=== PATIENT | male | born 1995 | race Hispanic/Latino ===

== ENCOUNTER 2017-04-11 07:45 | Emergency (ER) | payer SELFPAY ==
--- NOTE | 2017-04-11 08:31 | RAD ---
EXAM DESCRIPTION: Chest,2 Views CLINICAL HISTORY: 21 years Male, dyspnea, pain with deep breathing IMPRESSION: Infiltrates within the mid right lung. Pneumonia cannot be excluded. The left lung is clear. Mediastinum is unremarkable. Electronically signed by: Palomo Henley MD 04/11/2017 8:31 AM CDT
--- NOTE | 2017-04-11 08:35 | ED.PDOC ---
History of Present Illness - General Chief Complaint: Abdominal Pain Stated Complaint: n/v/d Time Seen by Provider: 04/11/17 08:11 Source: patient Exam Limitations: no limitations - History of Present Illness Initial Comments: Patient presents with two days of increasing abdominal pain. Pain is bilateral lower quadrants. Radiates to the back on the right side. No exacerbating nor alleviating factors. Constant but intermittent in intensity. Not worsened by food but he has a decreased appetite. Last meal was last night. He had one loose non-bloody stool this morning. "Aching" in nature. Rather sudden onset. No particular context. No changes in urine color or frequency. No dysuria. Has had low back pain for three weeks. The low back pain is right sided with radiation to the right flank. It is constant and aching. Better with rest and worse with movement. No recent traumas. He does do physical activity at work but he says there has been nothing new. The patient also says he has had intermittent dyspne. It is not associated with any other symptom specifically but seems to happen more when he is laying down. Has had a dry cough for a few days. He has trouble taking a full breath because he said it hurts. No previous episodes. No hx of respiratory diseases. Patient denies tobacco use. No fever. No other complaints. Timing/Duration: changing over time Severity: moderate Improving Factors: rest Worsening Factors: movement Associated Symptoms: other - see HPI Allergies/Adverse Reactions: Allergies Vancomycin Allergy (Verified 04/11/17 08:14) Home Medications: Ambulatory Orders NK [NK] 04/11/17 Review of Systems - Review of Systems Constitutional: States: no symptoms reported EENTM: States: no symptoms reported Respiratory: States: see HPI Cardiology: States: no symptoms reported Gastrointestinal/Abdominal: States: see HPI Genitourinary: States: see HPI Musculoskeletal: States: see HPI Skin: States: no symptoms reported Neurological: States: no symptoms reported Endocrine: States: no symptoms reported Hematologic/Lymphatic: States: no symptoms reported Past Medical History (General) - Vaccination History Hx Tetanus, Diphtheria Vaccination: No Hx Influenza Vaccination: No - Social History Hx Tobacco Use: No Hx Alcohol Use: No Hx Substance Use: No Hx Substance Use Treatment: No Hx Depression: No - Activities of Daily Living Custodial/Assisted Living (if applicable):: [facility] - Female History Patient is a Female of Child Bearing Age (10 -59 yrs old): No Patient : No Family Medical History - Family History Mother Family History: Unknown Physical Exam - Physical Exam General Appearance: Alert Eye Exam: bilateral normal Ears, Nose, Throat: normal ENT inspection Neck: non-tender, full range of motion, supple Respiratory: lungs clear Cardiovascular/Chest: normal peripheral pulses, regular rate, rhythm Gastrointestinal/Abdominal: normal bowel sounds, other - Mildly TTP over left and right lower quadrants. Positive Rovsing's sign. Psoas sign causes pain in the right lower lumbar area. Back Exam: other - + CVA tenderness on the right side. None on the left. Extremity: other - Positive straight and cross-leg raises at 20 and 30 degrees to right lower back. Heel walking causes the pain. Jumping up and down doesn' t not elicit lumbar nor abdominal pain. Neurologic: no motor/sensory deficits Skin Exam: normal color Lymphatic: no adenopathy Progress - Progress Progress: 04/11/17 14:[address] showed pneumomediastinum. He had a mildly elevated wbc. I contacted [facility] to transfer the patient but he said he didn't want to go and wanted to leave [place]. Patient was warned of possible decompensation or but said he didn't want to stay here any longer or go to another hospital. Laboratory Tests 04/11/17 04/11/17 04/11/17 08:20 08:20 08:20 WBC 11.8 H RBC 4.61 L Hgb 14.4 Hct 42.5 MCV 92.1 MCH 31.2 H MCHC 34.0 RDW 13.0 Plt Count 280 MPV 6.7 L Absolute Neuts (auto) 9.40 H Absolute Lymphs (auto) 1.40 Absolute Monos (auto) 0.80 Absolute Eos (auto) 0.20 Absolute Basos (auto) 0.00 Neutrophils % 79.1 H Lymphocytes % 11.7 L Monocytes % 7.2 Eosinophils % 1.8 Basophils % 0.2 Sodium 135 Potassium 3.3 L Chloride 103 Carbon Dioxide 23 Anion Gap 12.3 BUN 14 Creatinine 0.88 BUN/Creatinine Ratio 15.9 Random Glucose 101 Serum Osmolality 270.7 L Calcium 8.7 Total Bilirubin 1.1 H AST 57 H ALT 38 Alkaline Phosphatase 83 L C-Reactive Protein 7.5 H Serum Total Protein 7.4 Albumin 4.4 Globulin 3.0 Albumin/Globulin Ratio 1.5 Lipase 24 Urine Color Urine Appearance Urine pH Ur Specific Spray Urine Protein Urine Glucose (UA) Urine Ketones Urine Blood Urine Nitrite Urine Bilirubin Urine Urobilinogen Ur Leukocyte Esterase Urine RBC Urine WBC Ur Epithelial Cells Urine Bacteria 04/11/17 08:50 WBC RBC Hgb Hct MCV MCH MCHC RDW Plt Count MPV Absolute Neuts (auto) Absolute Lymphs (auto) Absolute Monos (auto) Absolute Eos (auto) Absolute Basos (auto) Neutrophils % Lymphocytes % Monocytes % Eosinophils % Basophils % Sodium Potassium Chloride Carbon Dioxide Anion Gap BUN Creatinine BUN/Creatinine Ratio Random Glucose Serum Osmolality Calcium Total Bilirubin AST ALT Alkaline Phosphatase C-Reactive Protein Serum Total Protein Albumin Globulin Albumin/Globulin Ratio Lipase Urine Color Yellow Urine Appearance Clear Urine pH 6.0 Ur Specific Spray 1.025 Urine Protein 30 Urine Glucose (UA) Negative Urine Ketones 40 H Urine Blood Trace-intact H Urine Nitrite Negative Urine Bilirubin Small H Urine Urobilinogen 0.2 Ur Leukocyte Esterase Negative Urine RBC 0-1 Urine WBC 0-1 Ur Epithelial Cells 0-1 Urine Bacteria 0 Departure - Departure Clinical Impression: Pneumomediastinum Disposition: Left Against Medical Advice Condition: Fair Departure Forms: ED Discharge - Pt. Copy, Patient Portal Self Enrollment Instructions: DI for Abdominal Pain-Adult Referrals: HALINA RON,ADRIANNE Caban [Primary Care Provider] - 1-2 Weeks Home Medications: Ambulatory Orders NK [NK] 04/11/17
[2017-04-11] MEDS ORDERED: MORPHINE SULFATE INJ 10 MG/ML VIAL IV ONE (09:27)
--- NOTE | 2017-04-11 09:37 | CT ---
EXAM DESCRIPTION: CT abdomen and pelvis without and with contrast CLINICAL HISTORY: Abdominal pain COMPARISON: None Available. TECHNIQUE: Pre and postcontrast spiral CT of the abdomen and pelvis with coronal and sagittal reformatted images.. This exam was performed according to our departmental dose-optimization program, which includes automated exposure control, adjustment of the mA and/or kV according to patient size and/or use of iterative reconstruction technique. FINDINGS: Pneumomediastinum seen on the lower axial images with air surrounding the esophagus and lower thoracic aorta. Etiology uncertain. No pneumothorax. The lungs are clear. Normal heart size There is no free intraperitoneal air. Stomach, small and large intestine are normal. Terminal ileum and appendix are normal Liver, spleen, pancreas, adrenal glands and kidneys are normal. Normal gallbladder. No biliary or pancreatic duct dilation Omentum, mesentery and retroperitoneum are normal No bony abnormality IMPRESSION: Pneumomediastinum, etiology uncertain. Retrospectively this is seen on the chest radiograph. No pneumothorax identified on the chest radiograph. Consider chest CT to better evaluate and potentially determine the etiology for pneumomediastinum Unremarkable CT abdomen. No acute inflammatory process Electronically signed by: Manuel Gutierrez MD 04/11/2017 9:36 AM CDT
--- NOTE | 2017-04-11 10:44 | CT ---
EXAM DESCRIPTION: Chest w/Contrast CLINICAL HISTORY: pneumomediastinum COMPARISON: CT abdomen pelvis and chest radiograph obtained earlier same day TECHNIQUE: Chest CT was performed with IV contrast. This exam was performed according to our departmental dose-optimization program, which includes automated exposure control, adjustment of the mA and/or kV according to patient size and/or use of iterative reconstruction technique. FINDINGS: There is extensive pneumomediastinum extending from the base of the neck bilaterally through the mediastinum to the upper abdomen. The thoracic aorta is normal. There is no mediastinal hematoma. No hemopericardium, hemothorax or other pleural fluid collection. There is some soft tissue density in the anterior mediastinum which likely resents residual thymus. No mediastinal or hilar adenopathy. No esophageal wall thickening. The central airways are clear. There is no airspace consolidation or pneumothorax. No fracture or chest wall contusion is seen. IMPRESSION: Pneumomediastinum, uncertain etiology. Otherwise unremarkable exam. Findings were reported by telephone to Dr. Medellin by me at the time of this dictation. Electronically signed by: Ky Barba MD 04/11/2017 10:44 AM CDT
[2017-04-11 11:01] VITALS: TEMP 98.5
[2017-04-11 11:16] VITALS: BP 115/64; O2SAT 98
== END 2017-04-11 11:13 | disposition left against medical advice (07) ==
LOC: ER 07:45
DX: J98.2 Interstitial emphysema (principal); Z88.3 Allergy status to other anti-infective agents
CPT/HCPCS: 36415; 71020; 71260; 74178; 80053; 81001; 83690; 85025; 86140; J2270